=== PATIENT | female | born 1935 | race Caucasian/White ===

== ENCOUNTER 2023-06-14 10:15 | Inpatient (IN) | payer MEDICARE, OTHER ==
[~2023-06-14] VITALS: Ht 152.4 cm; Wt 55.9 kg
[2023-06-14 10:40] LABS: Basophils # (auto) 0.1 10 ^3/uL (0-0.2); Basophils % (auto) 0.8 % (0.0-2.0); Eosinophils # (auto) 0.2 10 ^3/uL (0-0.8); Eosinophils % (auto) 2.5 % (0.0-7.0); Hematocrit 37.4 % (36.0-46.0); Hemoglobin 12.3 g/dL (12.2-16.2); Lymphocytes # (auto) 1.5 10 ^3/uL (0.4-5.4); Lymphocytes % (auto) 22.6 % (10.0-50.0); Mean Corpuscular Hemoglobin 29.9 pg (28.0-32.0); Mean Corpuscular Hgb Conc. 32.9 g/dL (32.0-36.0); Mean Corpuscular Volume 90.9 fL (80.0-100.0); Monocytes # (auto) 0.5 10 ^3/uL (0-1.3); Monocytes % (auto) 6.8 % (0.0-12.0); Neutrophils # (auto) 4.5 10 ^3/uL (1.6-8.6); Neutrophils % (auto) 67.3 % (37.0-80.0); Red Blood Cells 4.12 10^6/uL (4.0-5.20); Red Cell Distribution Width 14.3 % (11.8-14.3); White Blood Cell 6.6 10^3/uL (4.4-10.8)
[2023-06-14 10:50] VITALS: PULSE 54; RESP 15; O2SAT 96
[2023-06-14 10:59] LABS: Alanine Aminotransferase 12 U/L (7-40); Albumin 4.2 g/dL (3.2-4.8); Alkaline Phosphatase 85 U/L (46-116); Anion Gap 6 (5-15); Aspartate Aminotransferase 12 U/L (13-40); BUN/Creatinine Ratio 18.7 (10.0-20.0); Bilirubin, Total 0.6 mg/dL (0.2-1.0); Blood Urea Nitrogen 20 mg/dL (9-23); Carbon Dioxide 27 mmol/L (20-30); Chloride 106 mmol/L (98-107); Glucose 101 mg/dL (74-106); Potassium 4.7 mmol/L (3.5-5.1); Sodium 139 mmol/L (136-145); Total Protein 6.7 g/dL (5.7-8.2)
[2023-06-14] MEDS: SODIUM CHLORIDE 0.9% 1,000 ML IV SCH (16:29)
[2023-06-14 18:01] VITALS: BP 160/70; PULSE 52; RESP 17; TEMP 98.6
[2023-06-14 18:07] LABS: Phosphorus 3.7 mg/dL (2.4-5.1)
[2023-06-14 18:10] VITALS: BP 160/78; PULSE 52; RESP 17; TEMP 98.3; O2SAT 91
[2023-06-14] MEDS ORDERED: LORazepam 2MG/ML-1ML VIAL IV PRN (18:45)
[2023-06-14] MEDS ORDERED: ENALAPRIL MALEATE 2.5 MG TAB PO ONE (19:10)
[2023-06-14 20:00] VITALS: PULSE 60; PULSE 62; RESP 18; O2SAT 95
[2023-06-14] MEDS ORDERED: CRAN600T OR (20:21)
[2023-06-14] MEDS ORDERED: CYAN-17 PO (20:21)
[2023-06-14] MEDS: ENOXAPARIN SOD 60 MG/0.6 ML SYRINGE SC SCH (21:09)
[2023-06-14] MEDS ORDERED: ATORVASTATIN 20 MG TAB PO SCH (22:00)
[2023-06-14] MEDS ORDERED: CLOTRIMAZOLE 1 % CREAM 15GM TOP SCH (22:00)
[2023-06-14 22:01] VITALS: BP 155/82; PULSE 64; RESP 18; TEMP 97.9; O2SAT 96
[2023-06-14] MEDS: CLOTRIMAZOLE 1 % CREAM 15GM TOP SCH (22:04)
[2023-06-15 02:00] LABS: Triglycerides 92 mg/dL (< 150)
[2023-06-15] MEDS: SODIUM CHLORIDE 0.9% 1,000 ML IV SCH (02:00)
[2023-06-15 02:01] LABS: LDL Cholesterol 130 mg/dL (< 100)
[2023-06-15 02:02] LABS: HDL Cholesterol 43 mg/dL (40-59)
[2023-06-15 05:00] VITALS: BP 139/71; PULSE 53; RESP 16; TEMP 97.6; O2SAT 96
[2023-06-15 05:05] VITALS: BP_SYST 134; BP_SYST 163; BP_DIAS 81; BP_DIAS 96
[2023-06-15] MEDS: CLOTRIMAZOLE 1 % CREAM 15GM TOP SCH (05:38)
[2023-06-15 05:40] LABS: Cholesterol 184 mg/dL (< 200)
[2023-06-15 08:00] VITALS: PULSE 46; PULSE 65; RESP 18; O2SAT 95
[2023-06-15 09:00] VITALS: BP 130/67; PULSE 67; RESP 16; TEMP 97.7; O2SAT 100
[2023-06-15] MEDS: ENOXAPARIN SOD 60 MG/0.6 ML SYRINGE SC SCH (09:39)
[2023-06-15] MEDS ORDERED: ASPirin 81 mg TAB PO SCH (10:00)
[2023-06-15] MEDS ORDERED: ENALAPRIL MALEATE 2.5 MG TAB PO SCH (10:00)
[2023-06-15] MEDS ORDERED: LISI-275 PO (10:34)
[2023-06-15] MEDS ORDERED: ASPI-325 PO (10:34)
[2023-06-15 11:44] VITALS: BP 130/67; PULSE 62; RESP 18; TEMP 36.5; O2SAT 95
[2023-06-17 07:06] LABS: RPR Non Reactive (Non Reactive)
== END 2023-06-15 13:30 | disposition home or self-care (01) | DRG 312 ==
LOC: ER 10:15 → EDBD 10:15 → TELE 16:09 → TELE-E-ADS 17:43
PROVIDERS: ADMIT Nurse Practitioner Family; ATTEND Nurse Practitioner Family
DX: R55 Syncope and collapse (principal); G93.41 Metabolic encephalopathy; E78.5 Hyperlipidemia, unspecified; F03.90 Unspecified dementia, unspecified severity, without behavioral disturbance, psychotic disturbance, mood disturbance, and anxiety; I10 Essential (primary) hypertension; R06.03 Acute respiratory distress; Z79.82 Long term (current) use of aspirin; Z79.899 Other long term (current) drug therapy; Z80.0 Family history of malignant neoplasm of digestive organs; Z80.1 Family history of malignant neoplasm of trachea, bronchus and lung; Z80.3 Family history of malignant neoplasm of breast; Z81.8 Family history of other mental and behavioral disorders; Z86.011 Personal history of benign neoplasm of the brain
CPT/HCPCS: 36415; 70450; 70551; 71045; 80053; 80061; 82607; 82746; 83735; 84100; 84443; 84484; 85025; 85379; 86592; 93005; 93306; 93886; 95819; 97163; G0378